=== PATIENT | male | born 1935 | race Caucasian/White ===

== ENCOUNTER 2017-03-04 13:06 | Day surgery (SDC) | payer MEDICARE, OTHER ==
[2017-03-02 13:52] LABS: HEMATOCRIT 43.5 % (40.0-51.0); HEMOGLOBIN 14.7 g/dL (13.6-17.8)
[2017-03-02 14:03] LABS: ASCORBIC ACID (UR NOT ORDER) NEG (NEG); BILIRUBIN, URINE NEGATIVE (NEG); KETONE, URINE NEGATIVE (NEG); LEUKOCYTE ESTERASE(NOT OR NEG (NEG); WBC (NOT ORDERED) (RFLEX) 1 (0-5)
[2017-03-02 14:05] LABS: BUN (BLOOD UREA NITROGEN) 23 MG/DL (6-23); CALCIUM, SERUM 9.8 MG/DL (8.5-10.4); CHLORIDE, SERUM 106 MMOL/L (96-112); CREATININE 1.65 MG/DL (0.70-1.30); GFR AFRICAN AMERICAN 45 ML/MIN (>=60); GFR NON AFRICAN AMERICAN 39 ML/MIN (>=60); GLUCOSE, SERUM 88 MG/DL (60-99); POTASSIUM, SERUM 4.4 MMOL/L (3.5-5.3); SODIUM, SERUM 142 MMOL/L (135-148)
[2017-03-02 14:06] LABS: CO2 (CARBON DIOXIDE) 32 MMOL/L (24-34)
--- NOTE | ~2017-03-04 | OP ---
Record Of Operation [facility] [address] [place]. [address] NAME: PATRICK MERCHANT JR : 39 STATUS : REG [facility] [place] PAT#: [id number] AGE: 81 ADM/REG DATE : 03/04/17 MR#: [id number] REPORT SERV DATE: 03/04/17 DICTATED BY: AISLINN BURNS DATE: 03/04/17 REPORT STATUS : Draft TRANSCRIBED BY: MODL DATE: 03/04/17 DATE OF PROCEDURE: 03/04/2017 SURGEON: Aislinn Burns MD TITLE OF OPERATION: Cystourethroscopy, bilateral retrograde pyelogram, bilateral ureteroscopy, bilateral laser lithotripsy, basket stone extraction on the left side, placement of 6 x 26 left ureteral stent with tether. PREOPERATIVE DIAGNOSIS: Left renal, and ureteral stone, right renal stone. POSTOPERATIVE DIAGNOSIS: Left renal, and ureteral stone, right renal stone. INDICATIONS: Mr. Merchant is a 81-year-old male, with a 1 cm left ureteral stone, as well as approximately 1.2 cm renal stone on the right side. His right side is intermittently obstructed from the renal pelvis stone. He is here for ureteroscopy. ANESTHESIA: General. COMPLICATIONS: None. IMPLANT: 6 x 26 left ureteral stent with tether. SPECIMEN: Stones for analysis. NARRATIVE: The patient was brought to the operating room, identified by his wristband. General anesthesia was induced and Ancef was given for preoperative antibiotics. He was placed in dorsal lithotomy position, prepped and draped in sterile fashion. A cystoscope was placed into his urethra and into his bladder. The bladder was inspected. There was no tumors or abnormalities. The prostate was slightly enlarged. A Sensor wire was placed up to the level of the renal pelvis on the left side past the obstructing stone. The ureteroscope was placed over the wire into the renal pelvis. The stone was dislodged into a mid pole calyx. Using a 200 micron holmium laser fiber. This stone as well as one other stone in the upper pole calyx were fragmented into innumerable submillimeter pieces. There was one sizable piece that was approximately 1 mm in size. It was grasped with a NGage basket and removed. There was a good radiographic response to the treatment. A wire was placed back up to the kidney. The ureter was inspected, it was clean, there was no edema, or damage to the ureter. A 6 x 26 ureteral stent was placed in standard fashion. The proximal coil was in the upper pole calyx. The distal coil was in the bladder. A tether was left. Attention was then turned to the right side. A Sensor wire was placed back up to the renal pelvis. Under fluoroscopic guidance, a ureteroscope was placed over the wire into the kidney. There were approximately three stones in the kidney. The largest stone was about a centimeter. These stones were also fragmented into innumerable submillimeter pieces with a 200 micron holmium laser fiber. There was a good radiographic response on fluoroscopy. There were no sizable pieces of worth grasping. All the calices were inspected. No other stones were identified. The ureter was inspected there was no edema or Record Of Operation [address] [address] NAME: PATRICK MERCHANT JR : 39 STATUS : REG [facility]#: [id number] AGE: 81 ADM/REG DATE : 03/04/17 MR#: [id number] REPORT SERV DATE: 03/04/17 DICTATED BY: AISLINN BURNS DATE: 03/04/17 REPORT STATUS : Draft TRANSCRIBED BY: TUYET DATE: 03/04/17 trauma. I decided to not leave the stent on the right side. The bladder was drained. An 18-Al[place] Coude catheter was placed. It will be removed in recovery room. The tether was taped to the patient's penis. He will follow up on Thursday for stent removal. QUITA/TUYET Aislinn Burns MD / [id number] CC: MD Francisca Kang D.O.
[~2017-03-04 13:06] MED LIST: ASAEC PO; COREG3 PO; COZ25 PO; CRESTOR20 MG PO; FISH-EPA1000 MG PO; LEVOTHYROXIN75 MCG PO; MULTIPLE VIT PO; NORCO1 TA1 PO; PLAVIX PO; VITAMIN C100 MG PO; VITAMIN D1000 UNI1 PO; ZOCOR20 PO
[2017-03-10 10:02] LABS: STONE COMPOSITION TWO DNR (())
== END 2017-03-04 19:53 | disposition home or self-care (01) ==
LOC: SDC 13:06
PROVIDERS: Urology
PROC: 0TF38ZZ Fragmentation in Right Kidney Pelvis, Via Natural or Artificial Opening Endoscopic (ICD-10-PCS; 2017-03-04)
PROC: 0T778DZ Dilation of Left Ureter with Intraluminal Device, Via Natural or Artificial Opening Endoscopic (ICD-10-PCS; 2017-03-04)
PROC: 0TC78ZZ Extirpation of Matter from Left Ureter, Via Natural or Artificial Opening Endoscopic (ICD-10-PCS; 2017-03-04)
PROC: BT14ZZZ Fluoroscopy of Kidneys, Ureters and Bladder (ICD-10-PCS; 2017-03-04)
PROC: 0TF48ZZ Fragmentation in Left Kidney Pelvis, Via Natural or Artificial Opening Endoscopic (ICD-10-PCS; principal; 2017-03-04 15:00)
DX: N20.2 Calculus of kidney with calculus of ureter (principal); I10 Essential (primary) hypertension; E03.9 Hypothyroidism, unspecified; Z95.5 Presence of coronary angioplasty implant and graft; Z96.651 Presence of right artificial knee joint; Z88.1 Allergy status to other antibiotic agents; Z79.2 Long term (current) use of antibiotics; Z79.02 Long term (current) use of antithrombotics/antiplatelets; Z79.899 Other long term (current) drug therapy
CPT/HCPCS: 74420; 80048; 81001; 82365; 85014; 85018; 93005; A9270-GY; C1758; C2617; J0690; J2250; J2270; J2370; J2405; J2710; J3010; Q9967